=== PATIENT | female | born 1955 | race Caucasian/White ===

== ENCOUNTER → 2020-07-12 13:04 | Outpatient (CLI) | payer OTHER, SELFPAY ==
--- NOTE | ~2020-07-12 | MM_ITS ---
EXAMINATION: MM screening nestor BI w danielle HISTORY: Screening TECHNIQUE: Craniocaudal and mediolateral oblique 3-D tomosynthesis images were obtained and synthetic 2-D images were generated. CAD analysis was submitted and interpreted. COMPARISON: Comparison to multiple prior studies sequentially, with oldest reviewed study dated 03/20. BREAST PARENCHYMAL COMPOSITION: Breast composed of scattered areas of fibroglandular density. FINDINGS: There are developing scattered breast masses in both breasts. There are no suspicious calci fications or architectural distortion. IMPRESSION: 1. Developing bilateral breast masses. 2. Additional mammographic views and possible breast ultrasound are recommended. BI-RADS Category 0: Incomplete: Needs additional imaging evaluation. Reviewed, dictated and finalized at location A. IMPRESSION: 1. Developing bilateral breast masses. 2. Additional mammographic views and possible breast ultrasound are recommended . BI-RADS Category 0: Incomplete: Needs additional imaging evaluation.
== END ==
PROVIDERS: PCP Family Medicine; Visit Provider Nurse Practitioner
DX: Z12.31 Encounter for screening mammogram for malignant neoplasm of breast (principal); R92.8 Other abnormal and inconclusive findings on diagnostic imaging of breast
CPT/HCPCS: 77063; 77067

== ENCOUNTER → 2020-07-25 08:19 | Outpatient (CLI) | payer OTHER, SELFPAY ==
--- NOTE | ~2020-07-25 | MMUS_ITS ---
EXAMINATION: MM diagnostic mammo BI, US breast BI complete HISTORY: Developing bilateral breast masses reported on 07/12/2020 screening mammogram TECHNIQUE: Additional 3-D tomosynthesis images of both breasts were performed and synthetic 2-D image s were generated. Bilateral rolled medial and rolled lateral craniocaudal views. CAD analysis was sub mitted and interpreted. High resolution bilateral complete breast ultrasound was performed. COMPARISON: 07/12/2020 bilateral digital screening mammogram FINDINGS: MAMMOGRAPHIC FINDINGS: Occasional scattered approximately 5 mm or smaller nodular masses are suggested bilaterally. No archi tectural distortion, malignant calcification, skin thickening or retraction is noted. Bilateral compl ete breast ultrasound examination was performed. ULTRASOUND: Right breast: 12:00 3 cm from nipple: 4.8 x 6.5 x 5.2 mm circumscribed sonolucency, likely a benign cyst. 10:00 4 cm from nipple: 3.2 x 4.3 x 4.7 mm sonolucency and contiguous 1.8 x 2.3 mm hypoechoic or sono lucent lesion. There is no internal vascularity in either of these. No suspicious shadowing. Six-sarahi h follow-up diagnostic mammogram and breast ultrasound examination is recommended. Left breast: 1:00 6 cm from nipple: 2 x 3mm circumscribed sonolucency, likely a small cyst. 9:00 4 cm from nipple: 1.6 x 3.4 mm circumscribed sonolucency, likely a small cyst. 11:00 4 cm from nipple: 2.6 x 2.8 mm hypoechoic or sonolucent lesion without internal vascularity; th e margins appear slightly irregular. 6 month follow-up diagnostic mammogram and breast ultrasound exa mination is recommended. IMPRESSION: 1. Probably benign findings 2. Six-month bilateral diagnostic mammogram and breast ultrasound follow-up is recommended. BI-RADS category 3, probably benign findings. Reviewed, dictated and finalized at location A. IMPRESSION: 1. Probably benign findings 2. Six-month bilateral diagnostic mammogram and breast ultrasound follow-up is recommended. BI-RADS category 3, probably benign findings.
== END ==
PROVIDERS: PCP Family Medicine; Visit Provider Obstetrics & Gynecology Gynecology
DX: R92.8 Other abnormal and inconclusive findings on diagnostic imaging of breast (principal)
CPT/HCPCS: 76641; 77066

== ENCOUNTER → 2021-02-17 08:37 | Outpatient (CLI) | payer BC, SELFPAY ==
--- NOTE | ~2021-02-17 | MMUS_ITS ---
EXAMINATION: MM diagnostic nestor BI w danielle, US breast BI complete HISTORY: Follow-up breast masses TECHNIQUE: Additional 3-D tomosynthesis images of the breasts were performed and synthetic 2-D images were generated. CAD analysis was submitted and interpreted. High resolution bilateral complete breas t ultrasound was performed. COMPARISON: Comparison to multiple prior studies sequentially, with oldest reviewed study dated 04/07. BREAST PARENCHYMAL COMPOSITION: Breast composed of scattered areas of fibroglandular density. FINDINGS: MAMMOGRAPHIC FINDINGS: Breast composed of scattered areas of fibroglandular density. There are multiple masses of the right breast which are partially obscured by fibroglandular tissue. The largest mass in the right breast is located in the upper central breast, middle third, measuring approximately 8 mm. The left breast is stable without evidence for malignancy. ULTRASOUND: Complete right breast ultrasound: At 12:00, 3 cm from the nipple there is a 7 mm cyst. At 10:00, 4 cm from the nipple, there are 2 adj acent complicated cysts, largest measuring 5 mm, unchanged from prior study. No suspicious masses to suggest malignancy. Complete left breast ultrasound: 2: There are multiple cysts of the left breast including a 4 mm cyst at 1:00 and a 3 mm cyst at 11:00 . No suspicious masses to suggest malignancy. IMPRESSION: 1. No evidence for malignancy in either breast. Benign cysts. 2. Routine yearly screening mammogram and regular clinical breast examination are recommended. BI-RADS Category 2: Benign finding(s). Reviewed, dictated and finalized at location A. IMPRESSION: 1. No evidence for malignancy in either breast. Benign cysts. 2. Routine yearly screening mammogram and regular clinical breast examination a re recommended. BI-RADS Category 2: Benign finding(s).
== END ==
PROVIDERS: Visit Provider Obstetrics & Gynecology Gynecology
DX: R92.8 Other abnormal and inconclusive findings on diagnostic imaging of breast (principal)
CPT/HCPCS: 76641; 77062; 77066; G0279

== ENCOUNTER 2021-08-01 18:24 | Emergency (ER) | payer OTHER, BC, SELFPAY ==
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
--- NOTE | ~2021-08-01 | XR_ITS ---
EXAMINATION: XR hand RT min 3V DATE: 08/01/2021 21:54 INDICATION: Pain and swelling at the fourth and fifth digits with deformity at the fifth metacarpopha langeal joint. TECHNIQUE: Posteroanterior, oblique and lateral views of the right hand were obtained. COMPARISON: None. FINDINGS: Nondisplaced transverse extra-articular fracture at the proximal metaphyseal region of the right fift h proximal phalanx with 40 degree dorsal lateral angulation. 2 mm ulnar minus variance. Alignment is otherwise normal. No other fractures identified. Mild polyarticular osteoarthritis at several of the distal interphalangeal joints. IMPRESSION: 1. 40 degree dorsolateral angulation of a nondisplaced extra articular fracture at the base of the fi fth proximal phalanx. Reviewed, dictated and finalized at location A. IMPRESSION: 1. 40 degree dorsolateral angulation of a nondisplaced extra articular fracture at the base of the fifth proximal phalanx.
--- NOTE | ~2021-08-01 | XR_ITS ---
EXAMINATION: XR hand RT 2V DATE: 08/01/2021 22:57 INDICATION: Postreduction of a fracture of the right fifth proximal phalanx. TECHNIQUE: Posteroanterior, oblique and lateral views of the right hand were obtained. COMPARISON: None. FINDINGS: Interval reduction to near-anatomic alignment of the previous noted angulated extra articular fractur e at the base of the right fifth proximal phalanx. No other fractures identified. Splinting material along the ulnar aspect of the forearm, wrist and hand. IMPRESSION: 1. Successful reduction in near-anatomic alignment of the extra articular fracture the base of the ri ght fifth proximal phalanx. Reviewed, dictated and finalized at location A. IMPRESSION: 1. Successful reduction in near-anatomic alignment of the extra articular fract ure the base of the right fifth proximal phalanx.
[2021-08-01 18:44] VITALS: BP 174/85; PULSE 79; RESP 18; TEMP 36.8; O2SAT 99
[2021-08-01 21:24] VITALS: BP 168/99; PULSE 73; RESP 16; O2SAT 100
[2021-08-01] MEDS: ONDANSETRON HCL ODT 4 MG TABLET PO (22:11)
[2021-08-01] MEDS: MORPHINE SULFATE (*CRX) 4 MG/ML INJ IM (22:19)
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
[2021-08-01 23:56] VITALS: BP 156/78; PULSE 56; RESP 16; O2SAT 100
== END 2021-08-01 23:59 | disposition home or self-care (01) ==
PROVIDERS: Emergency Provider Emergency Medicine; PCP Family Medicine
DX: S62.646A Nondisplaced fracture of proximal phalanx of right little finger, initial encounter for closed fracture (principal); S16.1XXA Strain of muscle, fascia and tendon at neck level, initial encounter; K21.9 Gastro-esophageal reflux disease without esophagitis; E55.9 Vitamin D deficiency, unspecified; M47.812 Spondylosis without myelopathy or radiculopathy, cervical region; V43.62XA Car passenger injured in collision with other type car in traffic accident, initial encounter
CPT/HCPCS: 26725; 26755; 72125; 73120; 73130; 96372; 99285; A9270; J2270; L0140

== ENCOUNTER 2021-10-13 11:56 | Emergency (ER) | payer BC, SELFPAY ==
[2021-10-13 12:04] VITALS: BP 149/90; PULSE 74; RESP 18; TEMP 36.8; O2SAT 100
--- NOTE | 2021-10-13 12:09 | ED.URI ---
HPI - URI/Sore Throat General Chief Complaint: Upper Respiratory Infection Stated Complaint: sinus congestion/pain/earache Time Seen by Provider: 10/13/21 12:09 Source: patient, RN notes reviewed and old records reviewed Mode of arrival: ambulatory Limitations: no limitations History of Present Illness HPI Narrative: 66-year-old female who presents to [facility] with complaints of scratchy throat, acute sinus pressure pain with drainage and right ear discomfort with pressure for the past 7 days, Patient reports that she has history of chronic sinus problems and sinus infections. Patient denies any acute fevers, chills or sweats, denies any body aches has had COVID vaccinations.Patient reports that she has been taking Claritin, Sudafed and also using Flonase with no improvement in her symptoms.Patient is non smoker and is not exposed to second hand tobacco. MD elicited complaint: cough (dry), rhinorrhea, nasal congestion, sinus pain and other (right ear pressure) Pertinent past history: sinusitis and seasonal allergies Onset (ago): day(s) () Consistency: constant Related Data Home Medications Medication Instructions Recorded Confirmed ergocalciferol (vitamin D2) 50,000 unit PO WEEKLY 09/21/19 10/13/21 esomeprazole magnesium [Nexium] 20 mg PO DAILY 09/21/19 10/13/21 estradiol 0.5 mg PO DAILY 09/21/19 10/13/21 fluticasone propionate [Flonase 1 spray INTRANASAL Q12H 09/21/19 10/13/21 Allergy Relief] medroxyprogesterone 2.5 mg PO DAILY 09/21/19 10/13/21 alprazolam 0.25 mg tablet 0.25 mg PO QHS PRN 08/11/21 10/13/21 Allergies Allergy/AdvReac Type Severity Reaction Status Date / Time montelukast [From Singulair] AdvReac Intermediate numbness/ti Verified 08/11/21 16:11 moriahling Review of Systems Review of Systems: CONSTITUTIONAL: Denies fever, chills, or sweats. EYES: Denies visual changes, redness, or discharge. ENT: Positive for rhinorrhea, congestion,sinus pressure to maxillary region of face, scratchy throat,right ear otalgia. CARDIOVASCULAR: Denies chest pain, palpitations, or edema. RESPIRATORY: Dry cough no dyspnea. GASTROINTESTINAL: Denies abdominal pain, nausea, vomiting, or diarrhea. GENITOURINARY: Denies dysuria or hematuria. SKIN: Denies rash or itching. MUSCULOSKELETAL: Denies back pain, joint pain, denies body aches NEUROLOGIC: Denies headache, numbness, or weakness. PSYCHIATRIC: Positive history of anxiety or depression. All systems reviewed & are unremarkable except as noted in HPI and below PMFSH Past Medical History Medical History GERD (gastroesophageal reflux disease) Seasonal allergies Sinus complaint ct sinuses normal 09-07-19 Vitamin D deficiency Surgical History Surgical History History of tympanoplasty of right ear Hx of colonoscopy Hx of dilation and curettage Family History Family History (Updated 10/13/21 @ 12:41 by Luisana Bain NP) Mother Carcinoma of colon Father Diabetes mellitus Sibling Diabetes mellitus Other Family history of cardiovascular disease Hypertension Social History Social History (Updated 10/13/21 @ 12:40 by Luisana Bain NP) Smoking status: Never smoker Alcohol intake: current Alcohol use details: socially Substance use: never Living arrangements: with family Gender identity (if verbalized by the patient): Female Comments At time of signature, agree with nursing past medical, surgical, social and family history. There is no relevant family history pertinent to the presenting complaint Exam Narrative: GENERAL: Well-appearing, well-nourished, and in no acute distress. HEAD: Normocephalic, atraumatic. EYES: PERRLA and EOMI. ENT: Nares red with turbinates swollen with clear rhinorrhea no epistaxis. Mucous membranes moist.TM's intact with light reflex dull bilaterally, pressure to maxillary sinus area, throat pink with
== END 2021-10-13 12:24 | disposition home or self-care (01) ==
PROVIDERS: Emergency Provider Registered Nurse; PCP Family Medicine
DX: J01.01 Acute recurrent maxillary sinusitis (principal)
CPT/HCPCS: 99213; G0463

== ENCOUNTER 2022-02-10 12:06 | Emergency (ER) | payer BC, SELFPAY ==
[2022-02-10 12:17] VITALS: BP 126/74; PULSE 71; RESP 16; TEMP 36.7; O2SAT 98
--- NOTE | 2022-02-10 12:42 | ECG_ITS ---
Measurements Intervals [place] Rate: 60 P: 63 AL: 139 QRS: 18 QRSD: 87 T: 31 QT: 425 QTc: 428 Interpretive Statements SINUS RHYTHM POSSIBLE LEFT ATRIAL ENLARGEMENT [-0.1mV P WAVE IN V1/V2] MILD ANTERIOR T-WAVE INVERSION CONSIDER ANTERIOR ISCHEMIA [-0.1+ mV T WAVE IN V3/V4] VERSUS FEMALE VARIANT NONSPECIFIC ST AND T-WAVE CHANGES NO PREVIOUS ECG AVAILABLE FOR COMPARISON Electronically Signed On 02-10-2022 16:30:47 CDT by Harper Courtney M.D.
--- NOTE | 2022-02-10 12:42 | ED.ABDPAIN ---
HPI - Abdominal Pain General Chief Complaint: Abdominal Pain Stated Complaint: ABD PAIN Time Seen by Provider: 02/10/22 12:32 Source: patient and RN notes reviewed Mode of arrival: ambulatory Limitations: no limitations History of Present Illness HPI narrative: Patient presents today complaining of epigastric pain and nausea radiating under her right breast to the right back since 5:00 this morning. She has taken Pepcid, Nexium, and a stool softener without relief of symptoms. She is now experiencing pressure and bloating to the area that is not feel like her normal GERD symptoms. Denies shortness of breath, vomiting. She currently rates her pain 6/10. Denies history of cardiac issues or hypertension. She still has her gallbladder and denies history of gallstones. MD elicited complaint: abdominal pain Related Data Home Medications Medication Instructions Recorded Confirmed ergocalciferol (vitamin D2) 50,000 unit PO WEEKLY 09/21/19 10/13/21 esomeprazole magnesium [Nexium] 20 mg PO DAILY 09/21/19 10/13/21 estradiol 0.5 mg PO DAILY 09/21/19 10/13/21 medroxyprogesterone 2.5 mg PO DAILY 09/21/19 10/13/21 alprazolam 0.25 mg tablet 0.25 mg PO QHS PRN 08/11/21 10/13/21 Allergies Allergy/AdvReac Type Severity Reaction Status Date / Time montelukast [From Singulair] AdvReac Intermediate numbness/ti Verified 08/11/21 16:11 ngling Review of Systems Review of Systems: CONSTITUTIONAL: Denies body aches, fever, chills, or sweats. EYES: Denies visual changes, redness, or discharge. ENT: Denies rhinorrhea, congestion, sore throat, or otalgia. CARDIOVASCULAR: Denies chest pain, palpitations, or edema. RESPIRATORY: Denies cough or dyspnea. GASTROINTESTINAL: Denies vomiting, or diarrhea. + Abdominal pain, nausea GENITOURINARY: Denies dysuria or hematuria. SKIN: Denies rash, itching, or wounds. MUSCULOSKELETAL: Denies back pain, joint pain, or myalgia. NEUROLOGIC: Denies headache, numbness, tingling, or weakness. PSYCH: Denies depression or anxiety. [facility] Past Medical History Medical History GERD (gastroesophageal reflux disease) Seasonal allergies Sinus complaint ct sinuses normal 09-07-19 Vitamin D deficiency Surgical History Surgical History History of tympanoplasty of right ear Hx of colonoscopy Hx of dilation and curettage Family History Family History Mother Carcinoma of colon Father Diabetes mellitus Sibling Diabetes mellitus Other Family history of cardiovascular disease Hypertension Social History Social History Smoking status: Never smoker Alcohol intake: current Alcohol use details: socially Substance use: never Gender identity (if verbalized by the patient): Female Comments At time of signature, I have reviewed and agree with nursing past medical, surgical, social and family history unless otherwise noted. Please see nursing chart for further information. There is no relevant family history pertinent to the presenting complaint Exam Narrative: GENERAL: Well-appearing, well-nourished, and in no acute distress. HEAD: Normocephalic, atraumatic. EYES: EOMI. No redness or drainage. Conjunctivae normal. ENT: Mucous membranes pink and moist. NECK: Normal AROM. Supple. No lymphadenopathy. CHEST: No respiratory distress. Clear to auscultation. Nontender. HEART: Regular rate and rhythm. No murmur appreciated. Normal peripheral pulses. ABDOMEN: Soft, nondistended, normal active bowel sounds. Tenderness in the epigastrium. Palpation to the epigastrium causes radiation of the pain under the right breast to the right back. MUSCULOSKELETAL: No bony tenderness. EXTREMITIES: Normal range of motion. No edema. SKIN: Warm, dry, no rash. Capillary r
== END 2022-02-10 13:17 | disposition home or self-care (01) ==
PROVIDERS: Emergency Provider Nurse Practitioner; PCP Family Medicine
DX: R10.13 Epigastric pain (principal); K21.9 Gastro-esophageal reflux disease without esophagitis; E55.9 Vitamin D deficiency, unspecified
CPT/HCPCS: 93005; 99213; G0463

== ENCOUNTER 2022-04-06 15:45 | Emergency (ER) | payer BC, SELFPAY ==
--- NOTE | 2022-04-06 15:48 | ED.URI ---
HPI - URI/Sore Throat General Chief Complaint: Upper Respiratory Infection Stated Complaint: SINUS CONGESTION Time Seen by Provider: 04/06/22 15:48 Source: patient and RN notes reviewed History of Present Illness HPI Narrative: Patient is a 66-year-old female who presents the urgent care with complaints of sore throat, right ear pain, congestion and runny nose. Patient states that started 8 days ago and she has been taking [id number] allergy medication and Tylenol as needed. Patient states that she has recurrent right ear infections and has had a couple surgeries on the ear as well. Patient has been using her prescription eardrops to the right ear and using cotton balls. Patient denies of any fever, nausea, vomiting. Patient has had a negative COVID test since symptoms started. No other acute complaints. No acute distress noted. Patient aware of the plan of care. Some parts of this dictation were generated by voice recognition software and may contain typographical and/or grammatical inaccuracies. Related Data Home Medications Medication Instructions Recorded Confirmed ergocalciferol (vitamin D2) 1,250 50,000 unit PO WEEKLY 09/21/19 04/06/22 mcg (50,000 unit) capsule estradiol 0.5 mg tablet 0.5 mg PO DAILY 09/21/19 04/06/22 medroxyprogesterone 2.5 mg tablet 2.5 mg PO DAILY 09/21/19 04/06/22 alprazolam 0.25 mg tablet 0.25 mg PO QHS PRN Sleep 08/11/21 04/06/22 esomeprazole magnesium 20 mg 40 mg PO DAILY 02/26/22 04/06/22 capsule,delayed release (Nexium) Allergies Allergy/AdvReac Type Severity Reaction Status Date / Time montelukast [From Singulair] AdvReac Intermediate numbness/ti Verified 04/06/22 15:57 manoj Review of Systems Review of Systems: CONSTITUTIONAL: Denies fever, chills, or sweats. EYES: Denies visual changes, redness, or discharge. ENT: Reports of rhinorrhea, sinus congestion/pressure, sore throat and right otalgia CARDIOVASCULAR: Denies chest pain, palpitations, or edema. RESPIRATORY: Denies cough or dyspnea. GASTROINTESTINAL: Denies abdominal pain, nausea, vomiting, or diarrhea. GENITOURINARY: Denies dysuria or hematuria. SKIN: Denies rash or itching. MUSCULOSKELETAL: Denies back pain, joint pain, or myalgia. NEUROLOGIC: Denies headache, numbness, or weakness. All other systems reviewed are negative, except as documented in HPI. [facility] Past Medical History Medical History GERD (gastroesophageal reflux disease) Seasonal allergies Sinus complaint ct sinuses normal 09-07-19 Vitamin D deficiency Surgical History Surgical History History of tympanoplasty of right ear Hx of colonoscopy Hx of dilation and curettage Family History Family History Mother Carcinoma of colon Father Diabetes mellitus Sibling Diabetes mellitus Other Family history of cardiovascular disease Hypertension Social History Social History Alcohol intake: current Alcohol use details: socially Substance use: never Gender identity (if verbalized by the patient): Female Comments At the time of my signature, I reviewed and agree with the nursing past medical, surgical, social, and family history. There is no relevant family history pertinent to the patient complaint. Exam Narrative: GENERAL: This is a well-nourished, well-developed patient, in no apparent distress. HEAD: normocephalic, atraumatic. Frontal sinus tenderness EYES: PERRL. Sclera clear/white. Vision is grossly intact. EARS: External ears normal, auditory canals clear and without drainage, notable scarring to the right TM with slight effusion, without otitis. Bilateral TMs normal without perforation. Hearing grossly intact. NOSE: External nose normal with no obvious nasal discharge, nares without redness, clear rhinorrhea
[2022-04-06 15:58] VITALS: BP 135/89; PULSE 91; RESP 18; TEMP 36.6; O2SAT 100
[2022-04-06 15:59] VITALS: BP 135/89; PULSE 91; RESP 18; TEMP 36.6; O2SAT 100
== END 2022-04-06 16:24 | disposition home or self-care (01) ==
PROVIDERS: Emergency Provider Nurse Practitioner Family; PCP Family Medicine
DX: J32.9 Chronic sinusitis, unspecified (principal); K21.9 Gastro-esophageal reflux disease without esophagitis; E55.9 Vitamin D deficiency, unspecified
CPT/HCPCS: 99213; G0463

== ENCOUNTER → 2022-06-18 12:32 | Outpatient (CLI) | payer MEDICARE, SELFPAY ==
--- NOTE | ~2022-06-18 | MM_ITS ---
EXAMINATION: MM screening nestor BI w danielle HISTORY: Screening mammogram TECHNIQUE: Craniocaudal and mediolateral oblique 3-D tomosynthesis images were obtained and synthetic 2-D images were generated. CAD analysis was submitted and interpreted. COMPARISON: 02/17/2021 and 07/25/2020 bilateral diagnostic mammography and complete bilateral breast ul trasound 07/2020, 03/23/2019 bilateral screening mammogram examinations BREAST PARENCHYMAL COMPOSITION: FINDINGS: Right breast: There is an approximately 8 mm low-density circumscribed mammographic opacity in the upper inner quad rant of the right breast. Diagnostic right mammogram and right breast ultrasound examination are tejas mmended. No significant new or developing density, malignant calcification, skin thickening or retraction or s ignificant abnormality of either breast is noted otherwise. . IMPRESSION: 1. 8 mm upper inner quadrant right breast mass 2. Diagnostic right mammogram and right breast ultrasound examination are recommended. BI-RADS Category 0: Incomplete: Needs additional imaging evaluation. Reviewed, dictated and finalized at location B. IMPRESSION: 1. 8 mm upper inner quadrant right breast mass 2. Diagnostic right mammogram and right breast ultrasound examination are recom mended. BI-RADS Category 0: Incomplete: Needs additional imaging evaluation.
--- NOTE | ~2022-06-18 | DEXA_ITS ---
Bone Density Report Name: KIERA HOLMAN Age: 67 Sex: Female Ethnicity: White Date of : 1955 Indication: monitoring treatment; height loss;postmenopausal Referring Provider: SHAYY TURCIOS Study: Bone densitometry was performed. Exam Date: June 18, 2022 Accession number: [id number] Bone Density: Region BMD T-score Z-score Classification AP Spine (L1-L4) 1.112 0.6 2.4 Normal Femoral Neck (Left) 0.975 1.1 2.6 Normal Total Hip (Left) 1.112 1.4 2.6 Normal Femoral Neck (Right) 0.958 1.0 2.5 Normal Total Hip (Right) 1.084 1.2 2.4 Normal Total Hip Mean 1.098 1.3 2.5 Normal World Health Organization criteria for BMD impression classify patients as: Normal (T-score at or above -1.0), Osteopenia (T-score between -1.0 and -2.5), or Osteoporosis (T-score at or below -2.5). 10-year Fracture Risk: FRAX not reported because: All T-scores for Spine Total, Hip Total, Femoral Neck at or above -1.0 Treated for osteoporosis Previous Exams: Region Exam Age BMD T-score BMD Change BMD Change Date g/cm2 vs Baseline vs Previous AP Spine(L1-L4) 06/18/2022 67 1.112 0.6 -0.027* -0.019 03/20/2017 61 1.131 0.8 -0.007 -0.007 03/27/2013 57 1.139 0.8 Total Hip(Left) 06/18/2022 67 1.112 1.4 0.017 0.020 03/20/2017 61 1.092 1.2 -0.003 -0.003 03/27/2013 57 1.095 1.3 Total Hip(Right) 06/18/2022 67 1.084 1.2 0.000 -0.009 03/20/2017 61 1.093 1.2 0.009 0.009 03/27/2013 57 1.084 1.2 *Denotes significance at 95% confidence level, LSC for AP Spine = 0.022 g/cm2, LSC for Total Hip = 0.027 g/cm2 Clinical Information Provided by Patient: Is being treated for osteoporosis Has used the following medications: Vitamin D Patient maximum height was 64 Menopause Age: 54 No regular weight bearing exercise Does not regularly consume dairy products Drinks caffeinated beverages Onset of menses at age 16 Number of children 1 Impression: The patient has normal bone mass. No significant bone loss was observed. Discussion: PATIENT UNDER TREATMENT WITH NO SIGNIFICANT BMD LOSS SINCE LAST EXAM. In an untreated patient, BMD typically declines with age. A lack of decline or gain is usually a sign that treatment is efficacious and fracture risk is reduced. It is important to ask patients whether they are taking their medicati
== END ==
PROVIDERS: PCP Family Medicine; Visit Provider Obstetrics & Gynecology Gynecology
DX: Z12.31 Encounter for screening mammogram for malignant neoplasm of breast (principal); Z78.0 Asymptomatic menopausal state; R92.8 Other abnormal and inconclusive findings on diagnostic imaging of breast
CPT/HCPCS: 77063; 77067; 77080

== ENCOUNTER → 2022-07-01 09:56 | Outpatient (CLI) | payer MEDICARE, SELFPAY ==
--- NOTE | ~2022-07-01 | MMUS_ITS ---
EXAMINATION: MM diagnostic nestor RT w danielle, US breast RT limited HISTORY: Follow-up right breast mass TECHNIQUE: Additional 3-D tomosynthesis images of the right breast were performed and synthetic 2-D i mages were generated. CAD analysis was submitted and interpreted. High resolution Limited right breas t ultrasound was performed. COMPARISON: 06/18/2022 BREAST PARENCHYMAL COMPOSITION: Breast composed of scattered areas of fibroglandular density FINDINGS: MAMMOGRAPHIC FINDINGS: There is a mass in the upper central aspect of the right breast, middle third. No suspicious calcific ations or architectural distortion. ULTRASOUND: Limited right breast ultrasound: At 1:00, 4 cm from the nipple there is a 9 x 6 x 7 mm cyst correspon ding to the mammographic finding. No suspicious masses to suggest malignancy. IMPRESSION: 1. No evidence for malignancy in the right breast. Benign cysts. 2. Routine yearly screening mammogram and regular clinical breast examination are recommended. BI-RADS Category 2: Benign finding(s). Reviewed, dictated and finalized at location A. IMPRESSION: 1. No evidence for malignancy in the right breast. Benign cysts. 2. Routine yearly screening mammogram and regular clinical breast examination a re recommended. BI-RADS Category 2: Benign finding(s).
== END ==
PROVIDERS: PCP Family Medicine; Visit Provider Obstetrics & Gynecology Gynecology
DX: N63.10 Unspecified lump in the right breast, unspecified quadrant (principal); R92.8 Other abnormal and inconclusive findings on diagnostic imaging of breast
CPT/HCPCS: 76642; 77061; 77065; G0279

== ENCOUNTER → 2023-08-19 12:32 | Outpatient (CLI) | payer MEDICARE, SELFPAY ==
--- NOTE | ~2023-08-19 | MM_ITS ---
EXAMINATION: MM screening nestor BI w danielle HISTORY: Screening mammogram TECHNIQUE: Craniocaudal and mediolateral oblique 3-D tomosynthesis images were obtained and synthetic 2-D images were generated. CAD analysis was submitted and interpreted. COMPARISON: 06/27/2022 diagnostic right mammogram and limited right breast ultrasound examination 06/18/2022 bilateral screening mammogram 02/17/2021 and 07/25/2020 bilateral diagnostic mammography and bilateral complete breast ultrasound exa mination 07/2020 bilateral screening mammogram BREAST PARENCHYMAL COMPOSITION: There are scattered areas of fibroglandular density. FINDINGS: Interval decreased size of previously reported 1:00 cyst of right breast since 06/18/2022. D ecreased size is further sign of benign diagnosis. There is no evidence of suspicious mass, calcifica tion, or architectural distortion to suggest malignancy in either breast. There has been no suspiciou s interval change. IMPRESSION: 1. No mammographic evidence of malignancy. 2. Recommend routine screening mammography in one year. BI-RADS Category 2: Benign finding(s). Reviewed, dictated and finalized at location A.
== END ==
PROVIDERS: PCP Obstetrics & Gynecology Gynecology; Visit Provider Family Medicine
DX: Z12.31 Encounter for screening mammogram for malignant neoplasm of breast (principal)
CPT/HCPCS: 77063; 77067

== ENCOUNTER 2024-09-27 07:36 | Day surgery (SDC) | payer MEDICARE, SELFPAY ==
[2024-09-27 08:12] VITALS: BP 139/70; PULSE 58; RESP 16; TEMP 37.2; O2SAT 98
[2024-09-27] MEDS: LACTATED RINGERS 1,000 ML 150 ML IV CONT (08:12)
--- NOTE | 2024-09-27 08:27 | P.PNAN_ITS ---
Anes - Initial Pre Proc Eval Procedure: Operation Date: 09/27/24 09:30 Proposed Procedures p Diagnostic Colonoscopy - Bradley Han MD Date/Time: 09/27/24 08:27 Surgeon: Bradley Han MD Pre Op Diagnosis: Family History of Colon Cancer Patient Data Age: 69 Gender: F Height: 1.6 m Weight: 72.05 kg Last Vital Signs Temp 37.2 C 09/27/24 08:12 Pulse 58 L 09/27/24 08:12 Resp 16 09/27/24 08:12 BP 139/70 09/27/24 08:12 Pulse Ox 98 09/27/24 08:12 O2 Del Method Room Air 09/27/24 08:12 Allergies Allergy/AdvReac Type Severity Reaction Status Date / Time No Known Allergies Allergy Verified 09/27/24 08:14 Home Medications Medication Instructions Recorded Confirmed Type fluticasone propionate 50 2 spray intranasal DAILY #15.8 mL 04/06/22 09/27/24 Rx mcg/actuation nasal spray,suspension (Flonase Allergy Relief) cyanocobalamin (vitamin B-12) 1,000 mcg PO DAILY #90 tabs 06/17/22 09/27/24 Rx 1,000 mcg tablet esomeprazole magnesium 40 mg 40 mg PO DAILY 07/01/22 09/27/24 History capsule,delayed release (Nexium) clobetasol 0.05 % topical cream 1 applic topical DAILY #45 grams 09/07/23 09/27/24 Rx ergocalciferol (vitamin D2) 1,250 See Rx Instructions .Route 05/08/24 09/27/24 Rx mcg (50,000 unit) capsule .COMPLEX #7 caps montelukast 10 mg tablet 10 mg PO DAILY #90 tabs 05/23/24 09/27/24 Rx (Singulair) alprazolam 0.25 mg tablet 0.25 mg PO BID PRN anxiety #30 tabs 09/12/24 09/27/24 Rx sucralfate 1 gram tablet (Carafate) 1 g PO .COMPLEX #60 tabs 09/12/24 09/27/24 Rx doxycycline hyclate 100 mg capsule 100 mg PO DAILY #20 caps 09/25/24 09/27/24 Rx Patient hx anesthesia problems: none Family hx anesthesia problems: none Results Review: All pre-operative results and documents have been reviewed as part of the pre- operative evaluation. [facility] Past Medical History Medical History GERD (gastroesophageal reflux disease) Right otitis media Sinus complaint ct sinuses normal 09-07-19 Strain of muscle, fascia and tendon at neck level, initial encounter Surgical History Surgical History History of tympanoplasty of right ear Hx of colonoscopy Hx of dilation and curettage Family History Family History (Reviewed 09/27/24 @ 08: by Camilo Sheehan MD) Mother Carcinoma of colon Father Diabetes mellitus Sibling Diabetes mellitus Other Family history of cardiovascular disease Hypertension Social History Social History (Reviewed 09/27/24 @ 08: by Camilo Sheehan MD) Social History: Caffeine-coffee Smoking status: Never smoker Alcohol intake: current Alcohol use details: socially Substance use: never Substance use type: does not use Lack of Transportation: No Lack of Food: Never True Current Housing: I Have Housing Concerned About Future Housing: No Difficulty Paying Gas/Electric Bills: No Difficulty Paying for Meds: No Currently Unemployed: No Education: Bachelor's Degree Difficulty w/ Childcare or Family Care: No Living arrangements: with family Gender identity (if verbalized by the patient): Female Anes - Eval Final PreProcedure Day of Procedure 09/27/24 08:27 Patient weight: overweight Heart: regular rate and rhythm Lungs: clear to auscultation Airway: Mallampati scale class II Neurological: alert and oriented Last oral intake: >/= 8 hours ASA classification: II Emergent: no Anesthetic plan: proceed Anesthesia type and monitoring: general GIVS and standard monitoring Results Review: All pre-operative results and documents have been reviewed as part of the pre-operative evaluation. Informed Consent: The patient's anesthetic plan and its attendant risks and benefits were discussed with the patient/family/POA. Questions were solicited and answers provided to the satisfaction of the patient/family/POA.
--- NOTE | 2024-09-27 08:50 | PM.HPGS ---
History of Present Illness History of Present Illness Consent: Risks, benefits, and alternatives have been discussed and questions answered. Patient agrees to proceed with procedure. Chief complaint: Family History of Colon Cancer Narrative: Avani Stanley is a 69 year old female presents for screening colonoscopy. Patient's family history is significant that her mother had colon cancer. Patient herself states that her weight appetite and bowel movements are normal. Patient denies abdominal pain. She has had no bleeding. Previous colonoscopy 5 years ago was unremarkable. Review of Systems Review of Systems: All systems reviewed & are unremarkable except as noted in HPI and below PMFSH Past Medical History Medical History GERD (gastroesophageal reflux disease) Right otitis media Sinus complaint ct sinuses normal 09-07-19 Strain of muscle, fascia and tendon at neck level, initial encounter Surgical History Surgical History History of tympanoplasty of right ear Hx of colonoscopy Hx of dilation and curettage Family History Family History Mother Carcinoma of colon Father Diabetes mellitus Sibling Diabetes mellitus Other Family history of cardiovascular disease Hypertension Social History Social History Social History: Caffeine-coffee Smoking status: Never smoker Alcohol intake: current Alcohol use details: socially Substance use: never Substance use type: does not use Lack of Transportation: No Lack of Food: Never True Current Housing: I Have Housing Concerned About Future Housing: No Difficulty Paying Gas/Electric Bills: No Difficulty Paying for Meds: No Currently Unemployed: No Education: Bachelor's Degree Difficulty w/ Childcare or Family Care: No Living arrangements: with family Gender identity (if verbalized by the patient): Female Meds Home Medications and Allergies Home Medications Medication Instructions Recorded Confirmed Type fluticasone propionate 50 2 spray intranasal DAILY #15.8 mL 04/06/22 09/27/24 Rx mcg/actuation nasal spray,suspension (Flonase Allergy Relief) cyanocobalamin (vitamin B-12) 1,000 mcg PO DAILY #90 tabs 06/17/22 09/27/24 Rx 1,000 mcg tablet esomeprazole magnesium 40 mg 40 mg PO DAILY 07/01/22 09/27/24 History capsule,delayed release (Nexium) clobetasol 0.05 % topical cream 1 applic topical DAILY #45 grams 09/07/23 09/27/24 Rx ergocalciferol (vitamin D2) 1,250 See Rx Instructions .Route 05/08/24 09/27/24 Rx mcg (50,000 unit) capsule .COMPLEX #7 caps montelukast 10 mg tablet 10 mg PO DAILY #90 tabs 05/23/24 09/27/24 Rx (Singulair) alprazolam 0.25 mg tablet 0.25 mg PO BID PRN anxiety #30 tabs 09/12/24 09/27/24 Rx sucralfate 1 gram tablet (Carafate) 1 g PO .COMPLEX #60 tabs 09/12/24 09/27/24 Rx doxycycline hyclate 100 mg capsule 100 mg PO DAILY #20 caps 09/25/24 09/27/24 Rx Allergies Allergy/AdvReac Type Severity Reaction Status Date / Time No Known Allergies Allergy Verified 09/27/24 08:14 Vital Signs Vital Signs - 24 hr 09/27/24 08:12 Temperature 99.0 F Pulse Rate 58 L Respiratory Rate 16 Blood Pressure 139/70 Pulse Oximetry 98 Oxygen Delivery Room Air Exam Narrative: Physical exam reveals patient to be a vital signs stable. HEENT exam is unremarkable. Patient is anicteric. Clear to auscultation and to percussion. Heart is without murmur extra sounds. Abdomen bowel sounds are present soft nontender with no organomegaly. Digital external rectal exam normal. Assessment and Plan Assessment and plan (1) Family history of colon cancer in mother: Code(s): Z80.0 - Family history of malignant neoplasm of digestive organs Status: Acute Assessment and Plan: Patient's mother has had colon cancer. For this reason screening colonoscopy advised in 5 year intervals.
[2024-09-27 09:33] VITALS: BP 107/61; PULSE 60; RESP 14; O2SAT 97
[2024-09-27 09:43] VITALS: BP 107/87; PULSE 57; RESP 15; O2SAT 100
--- NOTE | 2024-09-27 09:47 | WPDANESPN ---
Anes - Prog Note Post-Op Date/Time: 09/27/24 09:47 Cardiovascular status: normal Respiratory status: normal Airway patency: baseline Mental status: baseline Post-Op hydration status: normal Vital Signs: Last Vital Signs Temp 37.2 C 09/27/24 08:12 Pulse 57 L 09/27/24 09:43 Resp 15 09/27/24 09:43 BP 107/87 09/27/24 09:43 Pulse Ox 100 09/27/24 09:43 O2 Del Method Room Air 09/27/24 09:43 Pain Score (VAS): 0/10 I/O: Intake & Output 09/26/24 09/27/24 09/27/24 23:59 07:59 15:59 Intake Total 550 Balance 550 Patient Feedback: Patient satisfied with anesthetic care.
[2024-09-27 09:53] VITALS: BP 123/75; PULSE 50; RESP 16; O2SAT 98
== END 2024-09-27 10:00 | disposition home or self-care (01) ==
PROVIDERS: PCP Family Medicine; Visit Provider Internal Medicine Gastroenterology
PROC: 0DJD8ZZ Inspection of Lower Intestinal Tract, Via Natural or Artificial Opening Endoscopic (ICD-10-PCS; CPT 45378; principal; 2024-09-27 09:30)
DX: Z80.0 Family history of malignant neoplasm of digestive organs (principal); K57.30 Diverticulosis of large intestine without perforation or abscess without bleeding; K64.8 Other hemorrhoids
CPT/HCPCS: 45378

== ENCOUNTER 2024-10-03 10:24 | Outpatient (CLI) | payer MEDICARE, SELFPAY ==
--- NOTE | ~2024-10-03 | CT_ITS ---
CT sinus wo con Ordering provider: Cory Beckett M.D. History: . H69.91 - Unspecified Eustachian tube disorder, right ear . Comparison: None. Technique: Thin slice Scans CT of the paranasal sinuses was performed with coronal and sagittal refor matted images. No IV contrast. . Automated exposure control and iterative reconstruction technique w ere employed. The dose-length product was 252.58 mGy-cm. Findings: NASAL SEPTUM: midline. OSTEOMEATAL UNITS: Bilaterally patent. NASAL TURBINATES AND NASOPHARYNX: Normal. PARANASAL SINUSES: Well aerated. VISUALIZED MASTOIDS: Normal as visualized. Status post right mastoidectomy. 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 BONES: Normal. SUPERFICIAL SOFT TISSUES/VISUALIZED BRAIN PARENCHYMA: Normal. IMPRESSION: Status post right mastoidectomy. 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 Reviewed, dictated and finalized at location A. E LINING FINISH[employer]
== END 2024-10-03 10:25 | disposition home or self-care (01) ==
LOC: MICIMG 10:24
PROVIDERS: PCP Family Medicine; Visit Provider Otolaryngology
DX: H69.91 Unspecified Eustachian tube disorder, right ear (principal)
CPT/HCPCS: 70486

== ENCOUNTER 2024-10-09 08:59 | Outpatient (CLI) | payer MEDICARE, SELFPAY | END 2024-10-09 09:00 | disposition home or self-care (01) | LOC: ANHAUDIO 09:00 | PROVIDERS: PCP Family Medicine; Visit Provider Otolaryngology | DX: H73.811 Atrophic flaccid tympanic membrane, right ear (principal); H69.91 Unspecified Eustachian tube disorder, right ear; J31.0 Chronic rhinitis; J01.01 Acute recurrent maxillary sinusitis; H90.3 Sensorineural hearing loss, bilateral | CPT/HCPCS: 92557; 92567 ==

== ENCOUNTER 2024-12-19 11:09 | Outpatient (CLI) | payer MEDICARE, SELFPAY ==
--- NOTE | ~2024-12-19 | XR_ITS ---
Left Hand Technique: PA, oblique, and lateral views were obtained. Clinical History: Pain Findings: No acute fracture or dislocation is seen. Osseous alignment is anatomic. There is moderate degenerative change of the fifth DIP joint. There is mild degenerative change of the first CMC joint. . Soft tissues are unremarkable. Impression: Degenerative changes, as above. Reviewed, dictated and finalized at location M. RTER ANCHOR Impression: Degenerative changes, as above.
--- NOTE | ~2024-12-19 | XR_ITS ---
Right Hand Technique: PA, oblique, and lateral views were obtained. Clinical History: Arthritis Findings: No acute fracture or dislocation is seen. Osseous alignment is anatomic. Joint spaces are p reserved. Soft tissues are unremarkable. Impression: Unremarkable right hand. Reviewed, dictated and finalized at location M. S CONTROL CLERK Impression: Unremarkable right hand.
--- OUTSIDE RECORDS SUMMARY | 2024-12-19 12:31 | XMS_ITS | Clinical Summary ---
Author Organization [facility] Address [address] [address] Phone Care Team Providers Care Shuttle Fixer Name Role Phone Ira Greenberg MD Primary Care Provider Radha Suárez MD Unavailable Social History Tobacco Use Types Packs/Day Years Used Date Smoking Tobacco: Never Assessed Comments Unknown Sex and Gender Information Value Date Recorded Sex Assigned at Not on file Legal Sex Female 12:31 AM CDT Gender Identity Not on file Sexual Orientation Not on file Plan of Treatment Health Maintenance Due Date Last Done Comments DEXA Bone Density 1955 Hepatitis C Virus (HCV) Screening 1955 TdaP Immunization 1955 Cologuard 2007 Immunochemical Fecal Occult Blood 2007 Mammogram 2007 Pneumococcal Immunization (5 0+ years) (1 of 1 - PCV) 2007 Zoster Immunization (1 of 2) 2007 Influenza Immunization (#1) 2024 SARS-COV-2 Immunization ( - 2023- season) 2024 Colonoscopy 09/25/2024 09/25/2019 Colorectal Cancer Screening 09/25/2024 Respiratory Syncytial Virus (RSV) Immunization (Adult) (1 - 1-dose 75+ series) 2032 09/25/2019 Hepatitis B Immunization Aged Out No longer eligible based on patient's age to complete this topic Meningococcal Immunization (ACWY) Aged Out No longer eligible based on patient's age to complete this topic Rotavirus Immunization Aged Out No lo nger eligible based on patient's age to complete this topic Procedures Procedure Name Priority Date/Time Associated Diagnosis Comments COLONOSCOPY Routine 09/25/2019 from Last 3 Months or Most Recently Relevant to Health Maintenance Results * COLONOSCOPY (09/25/2019) Bradley Spencer Cata DO PROCEDURE/MINOR SURGICAL ORDERA BLES Final Result from Last 3 Months or Most Recently Relevant to Health Maintenance Care Teams Shuttle Fixer Relationship Specialty Start Date End Date Ira Greenberg MD PCP - General Family Medicine 02/24/19 Radha Suárez MD [address] [address] Obstetrics & Gynecology 02/24/19
--- OUTSIDE RECORDS SUMMARY | 2024-12-19 12:31 | XMS_ITS | Referral Summary ---
Author Organization [facility] Address [address] [place] [address] Care Team Providers Care Machine Ceramic Coater Name Role Phone Ira Greenberg MD Primary Care Provider [phone] Source Comments [facility],non-owned Affiliates and Associated Physician Practices is amultiple site organization consisting of ambulatory clinics and hospital sitesin [place], [place], [place] and [place]. This disclosure is being madepursuant to the Care Everywhere program and may not contain all information available regarding this patient. Last updated 18.[facility] Allergies No known active allergies Medications Be aware that medications may not be up to date on this document. Always verify current medications with the patient. No known medications Active Problems No known active problems Social History Tobacco Use Types Packs/Day Years Used Date Smoking Tobacco: Never Assessed Sex and Gender Information Value Date Recorded Sex Assigned at Not on file Gender Identity Not on file Sexual Orientation Not on file Last Filed Vital Signs Vital Sign Reading Time Taken Comments Blood Pressure 110/72 09/19/2016 11:12 AM RECEIVING COORDINATOR Pulse 62 09/19/2016 11:12 AM RECEIVING COORDINATOR Temperature 36.9 C (98.5 F) 09/19/2016 11:12 AM RECEIVING COORDINATOR Respiratory Rate 18 09/19/2016 11:12 AM RECEIVING COORDINATOR Oxygen Saturation 99% 09/19/2016 11:12 AM RECEIVING COORDINATOR Inhaled Oxygen Concentration - - Weight 63.5 kg (140 lb) 09/19/2016 11:12 AM RECEIVING COORDINATOR Height 160 cm (5' 3 ) 09/19/2016 11:12 AM RECEIVING COORDINATOR Body Mass Index 24.8 09/19/2016 11:12 AM RECEIVING COORDINATOR Plan of Treatment Not on file Administered Medications Care Teams Machine Ceramic Coater Relationship Specialty Start Date End Date Ira Greenberg MD [address] [place] [address] PCP - General Family Medicine 09/19/16
--- OUTSIDE RECORDS SUMMARY | 2024-12-19 12:31 | XMS_ITS | Clinical Summary ---
Author Organization [address] Address [address] [place] [id number] Care Team Providers Care Manager Patient Name Role Phone Ira Greenberg MD Primary Care Provider + Allergies No known active allergies Medications montelukast (SINGULAIR) 10 mg tablet Take 10 mg by mouth nightly 1 Active medroxyPROGESTE Joaquin (PROVERA) 2.5 mg tablet Take 2.5 mg by mouth nightly 1 Active estradioL (ESTRACE) 0.5 mg tablet Take 0.5 mg by mouth daily 1 Active ergocalciferol (VITAMIN D) 50,000 unit capsule Take 50,000 Units by mouth 1 Active ALPRAZolam (XANAX) 0.25 mg tablet Take 0.25 mg by mouth daily as needed 1 Active ciprofloxacin-d exAMETHasone (CIPRODEX) otic suspension Administer 4 drops into the right ear 2 (two) times a day 7.5 mL 2 1 Active Active Problems No known active problems Immunizations Name Administration Dates Next Due PPD TEST 08/28/2019 Surgical History Surgery Date Site/Laterality Comments TYMPANOPLASTY Social History Tobacco Use Types Packs/Day Years Used Date Smoking Tobacco: Never Personal Safety Answer Date Recorded Getting School Help Needed Not on file 01/08 Comments Unknown Sex and Gender Information Value Date Recorded Sex Assigned at Not on file Legal Sex Female 2:55 PM CDT Gender Identity Not on file Sexual Orientation Not on file Obstetrics History Plan of Treatment Not on file Insurance [facility]ICE [facility]US [facility] H[facility]/PPO Address: [address] [address] [place] [address] [employer] [place] [employer] [place] Care Teams Manager Patient Relationship Specialty Start Date End Date Ira Greenberg MD PCP - General Family Medicine 08/28/19
--- OUTSIDE RECORDS SUMMARY | 2024-12-19 12:31 | XMS_ITS | Patient Health Summary ---
Author Organization [facility] Address [address] [place] [address] Care Team Providers Care Contact Agent Name Role Phone Ira Greenberg MD Primary Care Provider [phone] Note from [facility],non-owned Affiliates and Associated Physician Practices is amultiple site organization consisting of ambulatory clinics and hospital sitesin [place], [place], [place] and [place]. This disclosure is being madepursuant to the Care Everywhere program and may not contain all information available regarding this patient. Last updated 18.[facility] Allergies No known active allergies Medications Be [...] Comments Blood Pressure 110/72 09/19/2016 11:12 AM DIGITAL PROOFING AND PLATEMAKER Pulse 62 09/19/2016 11:12 AM DIGITAL PROOFING AND PLATEMAKER Temperature 36.9 C (98.5 F) 09/19/2016 11:12 AM DIGITAL PROOFING AND PLATEMAKER Respiratory Rate 18 09/19/2016 11:12 AM DIGITAL PROOFING AND PLATEMAKER Oxygen Saturation 99% 09/19/2016 11:12 AM DIGITAL PROOFING AND PLATEMAKER Inhaled Oxygen Concentration - - Weight 63.5 kg (140 lb) 09/19/2016 11:12 AM DIGITAL PROOFING AND PLATEMAKER Height 160 cm (5' 3 ) 09/19/2016 11:12 AM DIGITAL PROOFING AND PLATEMAKER Body Mass Index 24.8 09/19/2016 11:12 AM DIGITAL PROOFING AND PLATEMAKER Procedures * SKIN TEST PPD - POINT OF CARE(Performed 09/11/2021) Performed for PPD screening test Results * SKIN TEST PPD - POINT OF CARE (09/11/2021 2:01 PM CDT) PPD negative [facility] Comment:no induration Other MISCELLANEOUS SAMPLE S / Unknown 09/11/2021 2:01 PM CDT [facility] [facility] [facility] - POINT OF CARE ORDERABLES [facility] [address] [phone] Care Teams Contact Agent Relationship Specialty Start Date End Date Ira Greenberg MD [address] [place] [place] [address] PCP - General Family Medicine 09/19/16
--- OUTSIDE RECORDS SUMMARY | 2024-12-19 12:31 | XMS_ITS | Clinical Summary ---
Author Organization [facility] Address [address] [place] [address] Care Team Providers Care Magazine Filler Name Role Phone Iar Greenberg MD Primary Care Provider [phone] Source Comments [facility],non-owned Affiliates and Associated Physician Practices is amultiple site organization consisting of ambulatory clinics and hospital sitesin [place], [place], [place] and [place]. This disclosure is being madepursuant to the Care Everywhere program and may not contain all information available regarding this patient. Last updated 18.[facility] Allergies No known active allergies Medications Be [...] Comments Blood Pressure 110/72 09/19/2016 11:12 AM [facility] Pulse 62 09/19/2016 11:12 AM [facility] [employer] [facility] Temperature 36.9 C (98.5 F) 09/19/2016 11:12 AM [facility] Respiratory Rate 18 09/19/2016 11:12 AM [facility] Oxygen Saturation 99% 09/19/2016 11:12 AM [facility] [employer] [facility] Inhaled Oxygen Concentration - - Weight 63.5 kg (140 lb) 09/19/2016 11:12 AM [facility] Height 160 cm (5' 3 ) 09/19/2016 11:12 AM [facility] Body Mass Index 24.8 09/19/2016 11:12 AM [facility] Plan of Treatment Health Maintenance Due Date Last Done Comments BONE DENSITY TESTING 1957 COLOGUARD (AGES 45-75) - COL ON CA SCREENING 1957 COLON MONITORING 1957 COLONOSCOPY - COLON CA SCREENING 1957 CT COLONOGRAPHY - COLON CA SCREENING 1957 Colorectal Cancer Screening 1957 FIT - COLON CA SCREENING 1957 FLEX SIG - COLON CA SCREENING 1957 LIPID TESTING 1957 MAMMOGRAM 1957 HEPATITIS C SCREENING 06/09/1975 DTAP/TDAP/TD VACCINES (1 - Tdap) 1976 PNEUMOCOCCAL VACCINE 50+ (1 of 1 - PCV) 2007 ZOSTER VACCINE (1 of 2) 2007 COVID-19 VACCINE (1 - 2023-2 5 season) 2024 INFLUENZA VACCINE (#1) 2024 08/20/2021 DEPRESSION SCREENING 11/08/2024 Respiratory Syncytial Virus (RSV) Vaccine Pt: or over 60 yrs (1 - 1-dose 75+ series) 2032 HEPATITIS B VACCINE Aged Out No longe r eligible based on patient's age to complete this topic HIB VACCINE Aged Out No longer eligi ble based on patient's age to complete this topic HPV VACCINE Aged Out No longer eligi ble based on patient's age to complete this topic MENINGOCOCCAL (Group B) VACCINE Aged Out No longer eligible based on patient's age to complete this topic MENINGOCOCCAL VACCINE Aged Out No anya kacey eligible based on patient's age to complete this topic Care Teams Magazine Filler Relationship Specialty Start Date End Date Ira Greenberg MD [address] [place] [address] PCP - General Family Medicine 09/19/16
--- OUTSIDE RECORDS SUMMARY | 2024-12-19 12:31 | XMS_ITS | Referral Summary ---
Author Organization [address] Address [address] [place] [id number] Care Team Providers Care Pathologist Assistant Name Role Phone Ira Greenberg MD Primary [...] Administration Dates Next Due PPD TEST 08/28/2019 Social History Tobacco Use Types Packs/Day Years Used Date Smoking Tobacco: Never Personal Safety Answer Date Recorded Getting School Help Needed Not on file 01/08 Comments Unknown Sex and Gender Information Value Date Recorded Sex Assigned at Not on file Legal Sex Female 2:55 PM CDT Gender Identity Not on file Sexual Orientation Not on file Plan of Treatment Not on file Insurance [facility] CHOICE PLUS BLUE [employer] [place] [employer] [place] Care Teams Pathologist Assistant Relationship Specialty Start Date End Date Ira Greenberg MD PCP - General Family Medicine 08/28/19
== END 2024-12-19 11:10 | disposition home or self-care (01) ==
PROVIDERS: Visit Provider Plastic Surgery
DX: M18.9 Osteoarthritis of first carpometacarpal joint, unspecified (principal)
CPT/HCPCS: 73130

== ENCOUNTER 2025-10-07 14:55 | Emergency (ER) | payer MEDICARE, SELFPAY ==
[2025-10-07 15:02] VITALS: BP 106/75; PULSE 85; RESP 16; TEMP 36.3; O2SAT 100
[2025-10-07 15:15] LABS: EDUAAPPEAR Clear; EDUABILI 1+ (Negative); EDUABLOOD 3+ (Negative); EDUACOLOR1 Yellow; EDUAGLUCOSE Negative (Negative); EDUAKETONE Negative (Negative); EDUALEUKO Trace (Negative); EDUANITRATE Negative (Negative); EDUAPH 5.5; EDUAPROTEIN 2+ (Negative); EDUASPGRAVITY 1.030; EDUAUROBILI 0.2
--- NOTE | 2025-10-07 15:22 | ED.FEMALEGU ---
HPI - Female Genitourinary General Chief complaint: Urogenital-Female Stated complaint: BURNING URINATION Time Seen by Provider: 10/07/25 15:18 Source: patient and RN notes reviewed Mode of arrival: ambulatory Limitations: no limitations History of Present Illness HPI Narrative: 70-year-old female patient complains of a 3-4 day history of dysuria, frequency, lower abdominal pressure. Denies fever or back pain. No OTC treatment prior to arrival. No recent antibiotic use. Related Data Home Medications ?Medication ?Instructions ?Recorded ?Confirmed ?Last Taken ?Type esomeprazole magnesium 40 mg 40 mg PO DAILY 07/01/22 10/07/25 09/27/24 History capsule,delayed release (Nexium) cyanocobalamin (vitamin B-12) 1,000 mcg PO WEEKLY 08/23/25 10/07/25 Unknown History 1,000 mcg tablet fluoride (sodium) 1.1 % dental dental 08/23/25 09/13/25 Unknown History paste (PreviDent 5000 Booster Plus) Allergies Allergy/AdvReac Type Severity Reaction Status Date / Time No Known Allergies Allergy Verified 10/07/25 15:01 [facility] Past Medical History Medical History Strain of muscle, fascia and tendon at neck level, initial encounter Right otitis media Sinus complaint ct sinuses normal 09-07-19 GERD (gastroesophageal reflux disease) Surgical History Surgical History Hx of dilation and curettage History of tympanoplasty of right ear Hx of colonoscopy Family History Family History Mother Carcinoma of colon Father Diabetes mellitus Sibling Diabetes mellitus Other Family history of cardiovascular disease Hypertension Social History Social History Social History: Caffeine-coffee Smoking status: Never smoker Alcohol intake: current Alcohol use details: socially Substance use: never Substance use type: does not use Lack of Transportation: No Lack of Food: Never True Current Housing: I Have Housing Concerned About Future Housing: No Difficulty Paying Gas/Electric Bills: No Difficulty Paying for Meds: No Currently Unemployed: No Education: Bachelor's Degree Difficulty w/ Childcare or Family Care: No Living arrangements: with family Gender identity (if verbalized by the patient): Female Comments At time of signature, I have reviewed and agree with nursing past medical, surgical, social and family history unless otherwise noted. Please see nursing chart for further information. There is no relevant family history pertinent to the presenting complaint Exam Narrative: GENERAL: Well-appearing, well-nourished, and in no acute distress. HEAD: Normocephalic, atraumatic. EYES: EOMI. No redness or drainage. Conjunctivae normal. ENT: Mucous membranes pink and moist.. NECK: Normal AROM. CHEST: No respiratory distress. Clear to auscultation. HEART: Regular rate and rhythm. No murmur appreciated. Normal peripheral pulses. ABDOMEN: Soft, nondistended, normal active bowel sounds.+ mildly tender suprapubic area without rebound or guarding. -CVAT EXTREMITIES: Normal range of motion. No edema. SKIN: Warm, dry, no rash. Capillary refill normal. Normal skin turgor. NEURO: No focal deficits. Alert and oriented x3. Gait steady. PSYCH: Normal affect. No signs of depression or anxiety. Course Course Level of Care: Express Care Visit Vital Signs Vital signs: Vital Signs Temperature 97.4 F L 10/07/25 15:02 Pulse Rate 85 10/07/25 15:02 Respiratory Rate 16 10/07/25 15:02 Blood Pressure 106/75 10/07/25 15:02 Pulse Oximetry 100 10/07/25 15:02 Temperature 97.4 F L 10/07/25 15:02 Pulse Rate 85 10/07/25 15:02 Respiratory Rate 16 10/07/25 15:02 Blood Pressure 106/75 10/07/25 15:02 Pulse Oximetry 100 10/07/25 15:02 Reviewed MDM - Female Genitourinary MDM Narrative Medical decision making narrative: 70-year-old female patient complains of a 3-4 day history of dysuria, frequency, lower abdominal pressure. Denies fever or back pain. No OTC treatment prior to arrival. No recent antibiotic use. Upon exam, patient has a mildly tender suprapubic area without rebound or guarding. No CVA tenderness. Urinalysis shows trace leukocytes, 2+ protein, 3+ blood, 1+ bilirubin. She will be treated for acute UTI with Keflex with culture pending. Patient agrees with plan. Vital signs stable. Anticipatory guidance given. Differential Diagnosis Differential diagnosis: Likely urinary tract infection, vaginitis, cystitis and other (Pyelonephritis) Lab Data Attestation: I reviewed the patient's lab results. Labs: Lab Results 10/07/25 Range/Units 15:12 POC Urine Color Yellow POC Urine Clarity Clear POC Urine pH 5.5 POC Ur Specif [place] 1.030 POC Urine Protein 2+ (Negative) POC Ur Glucose (UA) Negative (Negative) POC Urine Ketones Negative (Negative) POC Urine Blood 3+ (Negative) POC Urine Nitrite Negative (Negative) POC Urine Bilirubin 1+ (Negative) POC Urine Urobilinogen 0.2 POC U Leukocyte Esteras Trace (Negative) Critical Care Time Critical Care Time Critical Care Time: No Discharge Plan Discharge Clinical Impression: Urinary tract infection Qualifiers: Urinary tract infection type: acute cystitis Hematuria presence: with hematuria Qualified Code(s): N30.01 - Acute cystitis with hematuria Patient Disposition: Home Condition: Stable Instructions: Antibiotic Form, Urinary Tract Infection in Women (ED) Additional Instructions: Your urine shows infection today. Take Keflex as prescribed until gone. Your urine will be sent of for a culture to identify what type of bacteria is causing your infection. If the culture shows that your medication will not get rid of your infection, you will be notified and a new antibiotic will be called in for you. If your symptoms worsen to include fever, sweats, chills, nausea, vomiting, severe abdominal or back pain, please go to the ER for further evaluation. Patient Language: Guatemalan Prescriptions: New cephalexin 500 mg capsule 500 mg PO BID 7 Days Qty: 14 0RF No Action fluticasone propionate [Flonase Allergy Relief] 50 mcg/actuation spray,suspension 2 spray NASAL DAILY Qty: 15.8 0RF Rx Instructions: administer into each nostril clobetasol 0.05 % cream 1 applic topical DAILY Qty: 45 0RF cyanocobalamin (vitamin B-12) 1,000 mcg tablet 1,000 mcg PO WEEKLY fluoride (sodium) [PreviDent 5000 Booster Plus] 1.1 % paste dental fluoxetine 20 mg capsule 20 mg PO DAILY Qty: 90 3RF alprazolam 0.25 mg tablet 0.25 mg PO BID PRN (Reason: anxiety) Qty: 30 0RF esomeprazole magnesium [Nexium] 40 mg capsule,delayed release(DR/EC) 40 mg PO DAILY montelukast [Singulair] 10 mg tablet 10 mg PO DAILY Qty: 90 3RF sucralfate [Carafate] 1 gram tablet 1 g PO .COMPLEX Qty: 60 3RF Rx Instructions: 1 g PO qid ac and hs ergocalciferol (vitamin D2) 1,250 mcg (50,000 unit) capsule See Rx Instructions .ROUTE .COMPLEX Qty: 7 2RF Dose Instruction: TAKE 1 CAPSULE BY MOUTH EVERY OTHER WEEK Rx Instructions: TAKE 1 CAPSULE BY MOUTH EVERY OTHER WEEK Follow-up/Referrals: Ira Greenberg MD [Primary Care Provider, Family Practice] Time of Disposition: 15:25
== END 2025-10-07 15:30 | disposition home or self-care (01) ==
PROVIDERS: Emergency Provider Nurse Practitioner; PCP Family Medicine
DX: N30.01 Acute cystitis with hematuria (principal); K21.9 Gastro-esophageal reflux disease without esophagitis
CPT/HCPCS: 81003; 87086; 87186; 99213; G0463